=== PATIENT | female | born 1950 | race African-American/Black ===

== ENCOUNTER 2018-02-28 15:00 | Inpatient (IN) | payer MEDICARE ==
[~2018-02-28] VITALS: Ht 157.5 cm; Wt 90.3 kg
[2018-02-28 17:39] VITALS: BP 160/92
[2018-02-28 19:11] LABS: BASOPHILS % (AUTO) 1.2 % (0.0-2.0); EOSINOPHILS % (AUTO) 0.8 % (0.0-3.0); HEMATOCRIT 32.1 % (37.0-47.0); HEMOGLOBIN 10.6 G/DL (12.0-16.0); LYMPHOCYTES % (AUTO) 31.6 % (20.0-45.0); MEAN CORPUSCULAR VOLUME 84 FL (80-99); MONOCYTES % (AUTO) 6.8 % (1.0-10.0); NEUTROPHILS % (AUTO) 59.6 % (45.0-75.0); PLATELET COUNT 139 K/UL (150-450); RED BLOOD COUNT 3.84 M/UL (4.20-5.40); RED CELL DISTRIBUTION WIDTH 11.4 % (11.6-14.8); WHITE BLOOD COUNT 4.3 K/UL (4.8-10.8)
[2018-02-28 19:14] LABS: ALANINE AMINOTRANSFERASE 14 U/L (12-78); ALBUMIN 2.7 G/DL (3.4-5.0); ALBUMIN/GLOBULIN RATIO 0.7 (1.0-2.7); ALKALINE PHOSPHATASE 84 U/L (46-116); ANION GAP 9 mmol/L (5-15); ASPARTATE AMINO TRANSFERASE 20 U/L (15-37); BILIRUBIN,TOTAL 0.9 MG/DL (0.2-1.0); BLOOD UREA NITROGEN 21 mg/dL (7-18); CALCIUM 8.6 MG/DL (8.5-10.1); CARBON DIOXIDE 26 MMOL/L (21-32); CHLORIDE 103 MMOL/L (98-107); CREATININE 1.4 MG/DL (0.55-1.30); POTASSIUM 3.9 MMOL/L (3.5-5.1); SODIUM 138 MMOL/L (136-145)
[2018-02-28] MEDS ORDERED: METFORMIN HCL500 M1 ORAL (19:47)
[2018-02-28] MEDS ORDERED: ASPIRIN325 MG ORAL (19:47)
[2018-02-28] MEDS ORDERED: HUMALOG100 UNIT/4 SUBQ (19:47)
[2018-02-28 20:00] VITALS: BP 145/64
[2018-02-28] MEDS: Carvedilol 6.25mg Tab ORAL SCH (21:17)
[2018-02-28] MEDS: Insulin NovoLOG Flexpen S/S (Mod) SUBQ SCH (21:27)
[2018-02-28] MEDS: Heparin 5000 units/ml inj SUBQ SCH (21:33)
[2018-03-01] VITALS: BP 145/81
[2018-03-01 04:00] VITALS: BP 145/73
[2018-03-01] MEDS: Heparin 5000 units/ml inj SUBQ SCH ×3 (05:46→22:00)
[2018-03-01] MEDS: Insulin NovoLOG Flexpen S/S (Mod) SUBQ SCH ×2 (06:04→12:38)
[2018-03-01 06:47] LABS: APPEARANCE,URINE TURBID; BILIRUBIN, URINE NEGATIVE (NEGATIVE); COLOR,URINE PALE YELLOW; GLUCOSE, URINE (UA) 1+ (NEGATIVE); KETONES,URINE NEGATIVE (NEGATIVE); LEUKOCYTE ESTERASE ,URINE 3+ (NEGATIVE); NITRITE,URINE NEGATIVE (NEGATIVE); PH,URINE 5 (4.5-8.0); PROTEIN,URINE 4+ (NEGATIVE); UROBILINOGEN,URINE NORMAL MG/DL (0.0-1.0)
[2018-03-01 08:00] VITALS: BP 117/68
[2018-03-01 08:41] LABS: CHOLESTEROL 158 MG/DL (< 200); HDL CHOLESTEROL 77 MG/DL (40-60); PHOSPHORUS 4.6 MG/DL (2.5-4.9); TRIGLYCERIDES 73 MG/DL (30-150)
[2018-03-01] MEDS ORDERED: Losartan 50mg tab ORAL SCH (09:00)
[2018-03-01] MEDS ORDERED: Aspirin Baby 81mg ORAL SCH (09:00)
[2018-03-01] MEDS: Carvedilol 6.25mg Tab ORAL SCH ×2 (09:07→21:37)
--- NOTE | 2018-03-01 11:23 | History & Physical ---
History and Physical History & Physicial Dictated for Int Med-Dr Bob no. [id number]. Randy Ash MD Mar 01, 2018 11:23
--- NOTE | 2018-03-01 11:41 | Consultation ---
History of Present Illness General Date patient seen: Mar 01, 2018 Reason for Consultation: inpatient management Present Illness HPI 67 year old female with hx of CVA, HTN, DM, was taken to [facility] with CC of ALOC and hyperglycemia. After initial work up, she was transferred to [facility] [place] further treatment. Pt is asymptomatic now. stating that she walks with a walker usually because of her previous CVA. Allergies: Coded Allergies: PENICILLINS (Verified Allergy, Unknown, 02/28/18) Medication History Scheduled Aspirin* (Aspirin*), 325 MG ORAL DAILY, (Reported) Metformin Hcl* (Metformin Hcl*), 500 MG ORAL TWICE A DAY, (Reported) Miscellaneous Medications Insulin Lispro (Humalog), 0 SUBQ, (Reported) Patient History Healthcare decision maker N Resuscitation status Full Code Advanced Directive on File Past Medical/Surgical History Past Medical/Surgical History: (1) CVA (cerebral vascular accident) Review of Systems All Other Systems: negative except mentioned in HPI Physical Exam General Appearance: WD/WN, no apparent distress Lines, tubes and drains: peripheral HEENT: normocephalic, atraumatic Neck: non-tender, normal alignment Respiratory/Chest: chest wall non-tender, lungs clear Cardiovascular/Chest: normal peripheral pulses, normal rate Abdomen: normal bowel sounds Genitourinary/Rectal: normal genital exam Last 24 Hour Vital Signs Date Time Temp Pulse Resp B/P (MAP) Pulse Ox O2 Delivery O2 Flow Rate FiO2 03/01/18 09:07 76 160/74 03/01/18 09:06 160/74 03/01/18 04:00 70 03/01/18 04:00 97.5 74 18 145/73 95 Room Air 97.5 03/01/18 00:00 97.9 74 20 145/81 100 Room Air 97.9 03/01/18 00:00 77 02/28/18 21:17 81 145/64 02/28/18 20:00 81 02/28/18 20:00 98.4 81 22 145/64 94 Room Air 98.4 02/28/18 17:39 98.1 85 18 160/92 100 Room Air 98.1 Intake and Output 02/28/18 03/01/18 19:00 07:00 Intake Total 120 ml Balance 120 ml Intake Oral 120 ml # Voids 1 2 Laboratory Tests Test 02/28/18 18:49 7/2/18 06:00 03/01/18 06:25 White Blood Count 4.3 K/UL (4.8-10.8) L Red Blood Count 3.84 M/UL (4.20-5.40) L Hemoglobin 10.6 G/DL (12.0-16.0) L Hematocrit 32.1 % (37.0-47.0) L Mean Corpuscular Volume 84 FL (80-99) Mean Corpuscular Hemoglobin 27.7 PG (27.0-31.0) Mean Corpuscular Hemoglobin Concent 33.1 G/DL (32.0-36.0) Red Cell Distribution Width 11.4 % (11.6-14.8) L Platelet Count 139 K/UL (150-450) L Mean Platelet Volume 9.8 FL (6.5-10.1) Neutrophils (%) (Auto) 59.6 % (45.0-75.0) Lymphocytes (%) (Auto) 31.6 % (20.0-45.0) Monocytes (%) (Auto) 6.8 % (1.0-10.0) Eosinophils (%) (Auto) 0.8 % (0.0-3.0) Basophils (%) (Auto) 1.2 % (0.0-2.0) Sodium Level 138 MMOL/L (136-145) Potassium Level 3.9 MMOL/L (3.5-5.1) Chloride Level 103 MMOL/L (98-107) Carbon Dioxide Level 26 MMOL/L (21-32) Anion Gap 9 mmol/L (5-15) Blood Urea Nitrogen 21 mg/dL (7-18) H Creatinine 1.4 MG/DL (0.55-1.30) H Estimat Glomerular Filtration Rate 45.8 mL/min (>60) Glucose Level 203 MG/DL (74-106) H Calcium Level 8.6 MG/DL (8.5-10.1) Total Bilirubin 0.9 MG/DL (0.2-1.0) Aspartate Amino Transf (AST/SGOT) 20 U/L (15-37) Alanine Aminotransferase (ALT/SGPT) 14 U/L (12-78) Alkaline Phosphatase 84 U/L (46-116) Total Protein 6.8 G/DL (6.4-8.2) Albumin 2.7 G/DL (3.4-5.0) L Globulin 4.1 g/dL Albumin/Globulin Ratio 0.7 (1.0-2.7) L Urine Color Pale yellow Urine Appearance Turbid Urine pH 5 (4.5-8.0) Urine Specific [place] 1.015 (1.005-1.035) Urine Protein 4+ (NEGATIVE) H Urine Glucose (UA) 1+ (NEGATIVE) H Urine Ketones Negative (NEGATIVE) Urine Occult Blood 3+ (NEGATIVE) H Urine Nitrite Negative (NEGATIVE) Urine Bilirubin Negative (NEGATIVE) Urine Urobilinogen Normal MG/DL (0.0-1.0) Urine Leukocyte Esterase 3+ (NEGATIVE) H Urine RBC 5-10 /HPF (0 - 2) H Urine WBC 40-60 /HPF (0 - 2) H Urine Squamous Epithelial Cells Many /LPF (NONE/OCC) H Urine Bacteria Many /HPF (NONE) H Urine Hyaline Casts 0-2 /LPF (NONE) H Phosphorus Level 4.6 MG/DL (2.5-4.9) Magnesium Level 1.5 MG/DL (1.8-2.4) L Triglycerides Level 73 MG/DL (30-150) Cholesterol Level 158 MG/DL (< 200) LDL Cholesterol 77 mg/dL (<100) HDL Cholesterol 77 MG/DL (40-60) H Cholesterol/HDL Ratio 2.1 (3.3-4.4) L Height (Feet): 5 Height (Inches): 2.00 Weight (Pounds): 199 Medications Current Medications Medications (Trade) Dose Ordered Sig/Sonali Route PRN Reason Start Time Stop Time Status Last Admin Dose Admin Acetaminophen (Tylenol) 650 mg Q6H PRN ORAL Mild Pain/Temp > 100.5 02/28/18 18:00 03/30/18 17:59 Aspirin (ASA) 325 mg DAILY ORAL 03/01/18 09:00 03/31/18 08:59 03/01/18 09:01 Carvedilol (Coreg) 6.25 mg EVERY 12 HOURS ORAL 02/28/18 21:00 03/30/18 20:59 03/01/18 09:07 Clonidine HCl (Catapres Tab) 0.1 mg Q4H PRN ORAL SBP >160 02/28/18 18:00 03/30/18 17:59 Dextrose (Dextrose 50%) 25 ml STAT PRN IV Hypoglycemia 02/28/18 18:15 03/30/18 18:14 Dextrose (Dextrose 50%) 50 ml STAT PRN IV Hypoglycemia 02/28/18 18:15 03/30/18 18:14 Heparin Sodium (Porcine) (Heparin 5000 units/ml) 5,000 units EVERY 8 HOURS SUBQ 02/28/18 22:00 03/30/18 21:59 03/01/18 05:46 Insulin Aspart (NovoLOG) BEFORE MEALS AND HS SUBQ 02/28/18 21:00 03/30/18 20:59 03/01/18 06:04 Levofloxacin 100 ml @ 100 mls/hr Q24H IVPB 03/01/18 11:30 03/08/18 11:29 UNV Losartan Potassium (Cozaar) 50 mg DAILY ORAL 03/01/18 09:00 03/31/18 08:59 03/01/18 09:06 Metformin HCl (Glucophage) 500 mg BID ORAL 03/01/18 09:00 03/31/18 08:59 UNV Ondansetron HCl (Zofran) 4 mg Q6H PRN IVP Nausea & Vomiting 02/28/18 18:00 03/30/18 17:59 Assessment/Plan Problem List: (1) Acute encephalopathy ICD Codes: G93.40 - Encephalopathy, unspecified SNOMED: 10105951, 910153103 (2) Hypertension ICD Codes: I10 - Essential (primary) hypertension SNOMED: 51691497 (3) CVA (cerebral vascular accident) ICD Codes: I63.9 - Cerebral infarction, unspecified SNOMED: 597828005 (4) Diabetes mellitus ICD Codes: E11.9 - Type 2 diabetes mellitus without complications SNOMED: 13392043 Assessment/Plan MRI brain neuro evaluation sliding scale diabetic diet dvt prophylaxis pt/pt med/surg Ivone Quan MD Mar 01, 2018 11:41
[2018-03-01 12:00] VITALS: BP 159/76
--- NOTE | 2018-03-01 13:15 | History and Physical Report ---
DATE OF ADMISSION: 02/28/2018 CHIEF COMPLAINT: The patient is a 67-year-old female, presents with a chief complaint of left-sided weakness. HISTORY OF PRESENT ILLNESS: The patient has a history of diabetes and hypertension. The patient had a previous history of left-sided weakness in 2017. The patient states she has been traveling for the last two days. The patient has not gotten much sleep. Upon arrival at home, the patient was having problems with her blood glucose monitor. The patient was also having trouble with her phone. The patient appeared to be altered. EMS was called by the patient's sister. The patient was transferred initially to [facility] emergency room. The patient is transferred to [facility] for insurance purposes. The patient is admitted for left-sided weakness to rule out acute cerebrovascular accident. REVIEW OF SYSTEMS: CONSTITUTIONAL: The patient denies weight loss or weight gain. The patient denies fevers or chills. HEENT: The patient denies ear or throat pain. The patient denies headache. CARDIOVASCULAR: The patient denies palpitations or chest pain. CHEST: The patient denies wheezes or shortness of breath. ABDOMEN: The patient denies nausea, vomiting, diarrhea, or constipation. GENITOURINARY: The patient denies dysuria or increased frequency of urination. NEUROMUSCULAR: The patient complains of left-sided weakness as above. The patient denies seizures or generalized weakness. PAST MEDICAL HISTORY: Significant for: 1. Left-sided weakness in 2017, questionable transient ischemic attack. 2. Diabetes type 2. 3. Hypertension. PAST SURGICAL HISTORY: The patient denies. CURRENT MEDICATIONS: 1. Metformin 500 mg one tablet p.o. twice daily. 2. Aspirin 325 mg one tablet p.o. daily. 3. Lispro sliding scale before every meals. ALLERGIES: Penicillin. SOCIAL HISTORY: The patient is single. The patient lives with her sister. The patient denies tobacco or alcohol use. PHYSICAL EXAMINATION: VITAL SIGNS: Temperature 97.9, respirations 20, pulse 77, and blood pressure 145/81. GENERAL: The patient is a well-developed, well-nourished, female, in no apparent distress. HEENT: Eyes, pupils equal and responsive to light and accommodation. Extraocular movements are intact. NECK: Supple without lymphadenopathy. CHEST: Lungs are clear to auscultation bilaterally without wheezes or rales. CARDIOVASCULAR: Regular rate. S1 and S2 normal without murmurs, rubs, or gallops. ABDOMEN: Soft, nontender, nondistended. Positive bowel sounds. No evidence of hepatosplenomegaly. Currently, no rebound or guarding noted. EXTREMITIES: Negative for clubbing, cyanosis, or edema. RECTAL/GENITAL: Refused. NEUROLOGIC: Cranial nerves II through XII are grossly intact without focal deficits. Motor strength is 5/5 bilaterally. Deep tendon reflexes are 2+ plantar. LABORATORY STUDIES: WBC 3.2, hemoglobin 10.4, hematocrit 31.4, and platelets 128,000. Sodium 137, potassium 3.8, chloride 103, CO2 is 27, BUN 20, creatinine 1.3, glucose 220. Troponin less than 0.02. Urinalysis showed 1+ protein, 1+ glucose, 3+ occult blood, 3+ leukocyte esterase with 40 to 60 wbc's. ASSESSMENT: This is a 67-year-old female: 1. Altered mental status. 2. Left-sided weakness. 3. Urinary tract infection. 4. Diabetes type 2. 5. Hypertension. TREATMENT: 1. Altered mental status/left-sided weakness. An MRI of the brain is pending. An initial CAT scan at [place] revealed no acute disease or masses. A carotid duplex and Dopplers are pending. An echocardiogram is pending. 2. Urinary tract infection. The patient has been started empirically on Levaquin. Urine culture is pending. 3. Diabetes type 2. Continue NovoLog sliding scale. 4. Hypertension. The patient has been placed on lisinopril. Continue Coreg 6.25 mg p.o. twice daily. Randy Ash M.D. DR: PATY JOB#: [id number] CC:
[2018-03-01] MEDS ORDERED: LORazepam Inj 2mg/ml 1ml IVP PRN ×2 (15:15→18:00)
[2018-03-01 16:00] VITALS: BP 148/77
[2018-03-01] MEDS: NovoLOG Insulin Flexpen SUBQ SCH ×2 (17:43→21:00)
[2018-03-01] MEDS: metFORMIN 500mg tab ORAL SCH (17:44)
--- NOTE | 2018-03-01 17:50 | Consultation ---
History of Present Illness General Date patient seen: Mar 01, 2018 Reason for Consultation: inpatient management Present Illness HPI 67 year old female with hx of CVA, HTN, DM, was taken to [facility] with CC of ALOC and hyperglycemia. The pt is memory impairment and the pt is agitated and yelling and the pt irritable and has poor insight. Allergies: Coded Allergies: PENICILLINS (Verified Allergy, Unknown, 02/28/18) Medication History Scheduled Aspirin* (Aspirin*), 325 MG ORAL DAILY, (Reported) Aspirin* (Aspirin*), 325 MG ORAL DAILY Losartan Potassium* (Cozaar*), 50 MG ORAL DAILY Metformin Hcl* (Metformin Hcl*), 500 MG ORAL TWICE A DAY, (Reported) Miscellaneous Medications Insulin Lispro (Humalog), 0 SUBQ, (Reported) Patient History Limited by: medical condition History Provided By: Patient, Medical Record, PMD Healthcare decision maker N Resuscitation status Full Code Advanced Directive on File Past Medical/Surgical History Past Medical/Surgical History: (1) CVA (cerebral vascular accident) (2) Diabetes mellitus (3) Hypertension (4) Acute encephalopathy Review of Systems Psychiatric: Reports: prior hx, anxiety, depressed feelings, emotional problems , hallucinations Physical Exam General Appearance: WD/WN, no apparent distress, alert, confused, agitated Last 24 Hour Vital Signs Date Time Temp Pulse Resp B/P (MAP) Pulse Ox O2 Delivery O2 Flow Rate FiO2 03/01/18 16:00 97.9 74 21 148/77 98 Room Air 97.9 03/01/18 12:00 98.1 77 20 159/76 97 Room Air 98.1 03/01/18 12:00 73 03/01/18 09:07 76 160/74 03/01/18 09:06 160/74 03/01/18 08:00 78 03/01/18 08:00 98.1 83 20 117/68 97 Room Air 98.1 03/01/18 04:00 70 03/01/18 04:00 97.5 74 18 145/73 95 Room Air 97.5 03/01/18 00:00 97.9 74 20 145/81 100 Room Air 97.9 03/01/18 00:00 77 02/28/18 21:17 81 145/64 02/28/18 20:00 81 02/28/18 20:00 98.4 81 22 145/64 94 Room Air 98.4 Intake and Output 02/28/18 03/01/18 19:00 07:00 Intake Total 120 ml Balance 120 ml Intake Oral 120 ml # Voids 1 2 Laboratory Tests Test 02/28/18 18:49 03/01/18 06:00 03/01/18 06:25 White Blood Count 4.3 K/UL (4.8-10.8) L Red Blood Count 3.84 M/UL (4.20-5.40) L Hemoglobin 10.6 G/DL (12.0-16.0) L Hematocrit 32.1 % (37.0-47.0) L Mean Corpuscular Volume 84 FL (80-99) Mean Corpuscular Hemoglobin 27.7 PG (27.0-31.0) Mean Corpuscular Hemoglobin Concent 33.1 G/DL (32.0-36.0) Red Cell Distribution Width 11.4 % (11.6-14.8) L Platelet Count 139 K/UL (150-450) L Mean Platelet Volume 9.8 FL (6.5-10.1) Neutrophils (%) (Auto) 59.6 % (45.0-75.0) Lymphocytes (%) (Auto) 31.6 % (20.0-45.0) Monocytes (%) (Auto) 6.8 % (1.0-10.0) Eosinophils (%) (Auto) 0.8 % (0.0-3.0) Basophils (%) (Auto) 1.2 % (0.0-2.0) Sodium Level 138 MMOL/L (136-145) Potassium Level 3.9 MMOL/L (3.5-5.1) Chloride Level 103 MMOL/L (98-107) Carbon Dioxide Level 26 MMOL/L (21-32) Anion Gap 9 mmol/L (5-15) Blood Urea Nitrogen 21 mg/dL (7-18) H Creatinine 1.4 MG/DL (0.55-1.30) H Estimat Glomerular Filtration Rate 45.8 mL/min (>60) Glucose Level 203 MG/DL (74-106) H Calcium Level 8.6 MG/DL (8.5-10.1) Total Bilirubin 0.9 MG/DL (0.2-1.0) Aspartate Amino Transf (AST/SGOT) 20 U/L (15-37) Alanine Aminotransferase (ALT/SGPT) 14 U/L (12-78) Alkaline Phosphatase 84 U/L (46-116) Total Protein 6.8 G/DL (6.4-8.2) Albumin 2.7 G/DL (3.4-5.0) L Globulin 4.1 g/dL Albumin/Globulin Ratio 0.7 (1.0-2.7) L Urine Color Pale yellow Urine Appearance Turbid Urine pH 5 (4.5-8.0) Urine Specific [place] 1.015 (1.005-1.035) Urine Protein 4+ (NEGATIVE) H Urine Glucose (UA) 1+ (NEGATIVE) H Urine Ketones Negative (NEGATIVE) Urine Occult Blood 3+ (NEGATIVE) H Urine Nitrite Negative (NEGATIVE) Urine Bilirubin Negative (NEGATIVE) Urine Urobilinogen Normal MG/DL (0.0-1.0) Urine Leukocyte Esterase 3+ (NEGATIVE) H Urine RBC 5-10 /HPF (0 - 2) H Urine WBC 40-60 /HPF (0 - 2) H Urine Squamous Epithelial Cells Many /LPF (NONE/OCC) H Urine Bacteria Many /HPF (NONE) H Urine Hyaline Casts 0-2 /LPF (NONE) H Phosphorus Level 4.6 MG/DL (2.5-4.9) Magnesium Level 1.5 MG/DL (1.8-2.4) L Triglycerides Level 73 MG/DL (30-150) Cholesterol Level 158 MG/DL (< 200) LDL Cholesterol 77 mg/dL (<100) HDL Cholesterol 77 MG/DL (40-60) H Cholesterol/HDL Ratio 2.1 (3.3-4.4) L Height (Feet): 5 Height (Inches): 2.00 Weight (Pounds): 199 Medications Current Medications Medications (Trade) Dose Ordered Sig/Sonali Route PRN Reason Start Time Stop Time Status Last Admin Dose Admin Acetaminophen (Tylenol) 650 mg Q6H PRN ORAL Mild Pain/Temp > 100.5 03/01/18 18:00 03/30/18 17:59 Aspirin (ASA) 325 mg DAILY ORAL 03/02/18 09:00 03/31/18 08:59 Carvedilol (Coreg) 6.25 mg EVERY 12 HOURS ORAL 03/01/18 21:00 03/30/18 20:59 Clonidine HCl (Catapres Tab) 0.1 mg Q4H PRN ORAL SBP >160 03/01/18 18:00 03/30/18 17:59 Dextrose (Dextrose 50%) 25 ml STAT PRN IV Hypoglycemia 03/01/18 18:15 03/30/18 18:14 Dextrose (Dextrose 50%) 50 ml STAT PRN IV Hypoglycemia 03/01/18 18:15 03/30/18 18:14 Heparin Sodium (Porcine) (Heparin 5000 units/ml) 5,000 units EVERY 8 HOURS SUBQ 03/01/18 22:00 03/30/18 21:59 Insulin Aspart (NovoLOG) BEFORE MEALS AND HS SUBQ 03/01/18 17:15 03/30/18 17:14 03/01/18 17:43 Levofloxacin 50 ml @ 100 mls/hr Q24HRS IVPB 03/03/18 12:30 03/10/18 12:29 Levofloxacin 100 ml @ 100 mls/hr ONCE IVPB 03/02/18 12:30 03/02/18 13:30 Lorazepam (Ativan 2mg/ml 1ml) 0.5 mg Q6HR PRN IVP For Anxiety 03/01/18 18:00 03/08/18 15:14 Losartan Potassium (Cozaar) 50 mg DAILY ORAL 03/02/18 09:00 03/31/18 08:59 Metformin HCl (Glucophage) 500 mg BID ORAL 03/01/18 18:00 03/31/18 17:59 03/01/18 17:44 Ondansetron HCl (Zofran) 4 mg Q6H PRN IVP Nausea & Vomiting 03/01/18 18:00 03/30/18 17:59 Assessment/Plan Assessment/Plan Dementia psychotic d/o encephalopathy Seroquel prn provided ro/Bruno Becker MD Mar 01, 2018 17:50
[2018-03-01] MEDS ORDERED: metFORMIN 500mg tab ORAL SCH (18:00)
[2018-03-02 04:00] VITALS: BP 144/56
[2018-03-02] MEDS: Heparin 5000 units/ml inj SUBQ SCH ×2 (05:53→14:00)
[2018-03-02] MEDS: NovoLOG Insulin Flexpen SUBQ SCH ×2 (05:56→11:30)
[2018-03-02 06:42] LABS: HEMATOCRIT 30.5 % (37.0-47.0); HEMOGLOBIN 10.3 G/DL (12.0-16.0); MEAN CORPUSCULAR VOLUME 86 FL (80-99); PLATELET COUNT 131 K/UL (150-450); RED BLOOD COUNT 3.55 M/UL (4.20-5.40); RED CELL DISTRIBUTION WIDTH 11.9 % (11.6-14.8); WHITE BLOOD COUNT 3.5 K/UL (4.8-10.8)
[2018-03-02 06:57] LABS: ANION GAP 4 mmol/L (5-15); BLOOD UREA NITROGEN 23 mg/dL (7-18); CALCIUM 8.3 MG/DL (8.5-10.1); CARBON DIOXIDE 27 MMOL/L (21-32); CHLORIDE 107 MMOL/L (98-107); CREATININE 1.6 MG/DL (0.55-1.30); SODIUM 138 MMOL/L (136-145)
[2018-03-02 08:00] VITALS: BP 155/78
[2018-03-02] MEDS ORDERED: Losartan 50mg tab ORAL SCH (09:00)
[2018-03-02] MEDS: metFORMIN 500mg tab ORAL SCH (10:31)
[2018-03-02] MEDS: Carvedilol 6.25mg Tab ORAL SCH (10:33)
--- NOTE | 2018-03-02 10:44 | Diagnostic Imaging Report ---
Indication: Left-sided weakness. History of trauma and concussion Technique: The head was imaged in a 1.5 Raisa magnet. Sequences obtained include sagittal and axial T1 FLAIR, axial T2 fast spin echo with fat saturation, axial T2 FLAIR, diffusion and ADC map. Comparison: None Findings: There is moderate prominence of the sulci, ventricles, and basal cisterns consistent with atrophy. Moderate, nonspecific T2 hyperintensity noted within white matter. This may be due to chronic small vessel disease. There is no restricted diffusion. Loredo-white differentiation is normal. There is no mass effect, midline shift, edema, or hemorrhage. There are no abnormal extra-axial or intra-axial fluid collections. The corpus callosum and sella are unremarkable. The brainstem and cerebellum are unremarkable. Bone marrow signal within the visualized osseous structures appears age appropriate and unremarkable otherwise. Impression: No acute intracranial findings. Moderate atrophy and evidence of chronic small vessel disease involving white matter tracts.
[2018-03-02 12:00] VITALS: BP 148/82
[2018-03-02 12:36] VITALS: BP 165/79
[2018-03-02] MEDS ORDERED: COZAAR50 MG ORAL (13:22)
[2018-03-02] MEDS ORDERED: ASPIRIN325 MG ORAL (13:22)
--- NOTE | 2018-03-02 13:24 | Pulmonology Progress Note ---
Assessment/Plan Problems: (1) Acute encephalopathy (2) Hypertension (3) CVA (cerebral vascular accident) (4) Diabetes mellitus Assessment/Plan improving PT note appreciated BP slightly high, needs further fine tuning sliding scale diabetic diet Subjective ROS Limited/Unobtainable: No Allergies: Coded Allergies: PENICILLINS (Verified Allergy, Unknown, 02/28/18) Objective Last 24 Hour Vital Signs Date Time Temp Pulse Resp B/P (MAP) Pulse Ox O2 Delivery O2 Flow Rate FiO2 03/02/18 12:36 165/79 03/02/18 10:33 80 155/75 03/02/18 10:32 155/75 03/02/18 08:00 98.5 80 21 155/78 99 98.5 03/02/18 04:00 98.4 75 18 144/56 96 Room Air 98.4 03/01/18 21:37 82 139/69 03/01/18 16:00 97.9 74 21 148/77 98 Room Air 97.9 Intake and Output 03/01/18 03/02/18 19:00 07:00 Intake Total 480 ml 240 ml Balance 480 ml 240 ml Intake Oral 480 ml 240 ml # Voids 1 1 General Appearance: WD/WN HEENT: normocephalic, anicteric Respiratory/Chest: chest wall non-tender, lungs clear Breasts: no masses Cardiovascular: normal peripheral pulses Abdomen: normal bowel sounds, soft, non tender Genitourinary: normal external genitalia Extremities: no clubbing Skin: no rash Neurologic/Psychiatric: air grinder II-XII grossly normal Lymphatic: no neck adenopathy Musculoskeletal: normal muscle bulk Microbiology Date/Time Source Procedure Growth Status 03/01/18 06:00 Urine,Clean Catch Urine Culture - Preliminary Resulted Laboratory Tests 03/02/18 06:20: White Blood Count 3.5L, Red Blood Count 3.55L, Hemoglobin 10.3L, Hematocrit 30.5L, Mean Corpuscular Volume 86, Mean Corpuscular Hemoglobin 29.0, Mean Corpuscular Hemoglobin Concent 33.8, Red Cell Distribution Width 11.9, Platelet Count 131L, Mean Platelet Volume 9.6, Neutrophils (%) (Auto) , Lymphocytes (%) ( Auto) , Monocytes (%) (Auto) , Eosinophils (%) (Auto) , Basophils (%) (Auto) , Differential Total Cells Counted 100, Neutrophils % (Manual) 29L, Lymphocytes % (Manual) 62H, Monocytes % (Manual) 6, Eosinophils % (Manual) 2, Basophils % ( Manual) 1, Band Neutrophils 0, Platelet Estimate DecreasedL, Platelet Morphology Normal, Red Blood Cell Morphology Normal, Sodium Level 138, Potassium Level 4.0, Chloride Level 107, Carbon Dioxide Level 27, Anion Gap 4L, Blood Urea Nitrogen 23H, Creatinine 1.6H, Estimat Glomerular Filtration Rate 39.3, Glucose Level 174H, Calcium Level 8.3L Current Medications Medications (Trade) Dose Ordered Sig/Sonali Route PRN Reason Start Time Stop Time Status Last Admin Dose Admin Acetaminophen (Tylenol) 650 mg Q6H PRN ORAL Mild Pain/Temp > 100.5 03/01/18 18:00 03/30/18 17:59 Aspirin (ASA) 325 mg DAILY ORAL 03/02/18 09:00 03/31/18 08:59 03/02/18 10:33 Carvedilol (Coreg) 6.25 mg EVERY 12 HOURS ORAL 03/01/18 21:00 03/30/18 20:59 03/02/18 10:33 Clonidine HCl (Catapres Tab) 0.1 mg Q4H PRN ORAL SBP >160 03/01/18 18:00 03/30/18 17:59 03/02/18 12:36 Dextrose (Dextrose 50%) 25 ml STAT PRN IV Hypoglycemia 03/01/18 18:15 03/30/18 18:14 Dextrose (Dextrose 50%) 50 ml STAT PRN IV Hypoglycemia 03/01/18 18:15 03/30/18 18:14 Heparin Sodium (Porcine) (Heparin 5000 units/ml) 5,000 units EVERY 8 HOURS SUBQ 03/01/18 22:00 03/30/18 21:59 Insulin Aspart (NovoLOG) BEFORE MEALS AND HS SUBQ 03/01/18 17:15 03/30/18 17:14 03/02/18 11:30 Levofloxacin 50 ml @ 100 mls/hr Q24HRS IVPB 03/03/18 12:30 03/10/18 12:29 Levofloxacin 100 ml @ 100 mls/hr ONCE IVPB 03/02/18 12:30 03/02/18 13:30 03/02/18 13:07 Lorazepam (Ativan 2mg/ml 1ml) 0.5 mg Q6HR PRN IVP For Anxiety 03/01/18 18:00 03/08/18 15:14 Losartan Potassium (Cozaar) 50 mg DAILY ORAL 03/02/18 09:00 03/31/18 08:59 03/02/18 10:32 Metformin HCl (Glucophage) 500 mg BID ORAL 03/01/18 18:00 03/31/18 17:59 03/02/18 10:31 Ondansetron HCl (Zofran) 4 mg Q6H PRN IVP Nausea & Vomiting 03/01/18 18:00 03/30/18 17:59 Ivone Quan MD Mar 02, 2018 13:24
--- NOTE | 2018-03-02 14:07 | Diagnostic Imaging Report ---
APPROVED REPORT CPT Code: 78055 Vascular Symptoms Comments: AMS. Doppler Spectral Velocity Analysis RightLeft BIATERAL CAROTID: CCA - Imaging reveals no significant plaque in the common carotid the external carotid arteries. The Doppler signal indicates the degree of stenosis is minimal (5%) in the internal and external carotid arteries. VERTEBRAL - The vertebral arteries are patent, without evidence of stenosis or steal, bilaterally.
--- NOTE | 2018-03-02 15:39 | General Progress Note ---
Assessment/Plan Assessment/Plan Dementia psychotic d/o encephalopathy Seroquel prn provided ro/st Subjective Date patient seen: Mar 02, 2018 Neurologic/Psychiatric: Reports: anxiety, depressed, emotional problems Allergies: Coded Allergies: PENICILLINS (Verified Allergy, Unknown, 02/28/18) Objective Last 24 Hour Vital Signs Date Time Temp Pulse Resp B/P (MAP) Pulse Ox O2 Delivery O2 Flow Rate FiO2 03/02/18 12:36 165/79 03/02/18 12:00 97.1 78 20 148/82 97 Room Air 97.1 03/02/18 10:33 80 155/75 03/02/18 10:32 155/75 03/02/18 08:00 98.5 80 21 155/78 99 98.5 03/02/18 04:00 98.4 75 18 144/56 96 Room Air 98.4 03/01/18 21:37 82 139/69 03/01/18 16:00 97.9 74 21 148/77 98 Room Air 97.9 Intake and Output 03/01/18 03/02/18 19:00 07:00 Intake Total 480 ml 240 ml Balance 480 ml 240 ml Intake Oral 480 ml 240 ml # Voids 1 1 Laboratory Tests 03/02/18 06:20: White Blood Count 3.5L, Red Blood Count 3.55L, Hemoglobin 10.3L, Hematocrit 30.5L, Mean Corpuscular Volume 86, Mean Corpuscular Hemoglobin 29.0, Mean Corpuscular Hemoglobin Concent 33.8, Red Cell Distribution Width 11.9, Platelet Count 131L, Mean Platelet Volume 9.6, Neutrophils (%) (Auto) , Lymphocytes (%) ( Auto) , Monocytes (%) (Auto) , Eosinophils (%) (Auto) , Basophils (%) (Auto) , Differential Total Cells Counted 100, Neutrophils % (Manual) 29L, Lymphocytes % (Manual) 62H, Monocytes % (Manual) 6, Eosinophils % (Manual) 2, Basophils % ( Manual) 1, Band Neutrophils 0, Platelet Estimate DecreasedL, Platelet Morphology Normal, Red Blood Cell Morphology Normal, Sodium Level 138, Potassium Level 4.0, Chloride Level 107, Carbon Dioxide Level 27, Anion Gap 4L, Blood Urea Nitrogen 23H, Creatinine 1.6H, Estimat Glomerular Filtration Rate 39.3, Glucose Level 174H, Calcium Level 8.3L Height (Feet): 5 Height (Inches): 2.00 Weight (Pounds): 199 General Appearance: no apparent distress, alert, confused, agitated Bruno English MD Mar 02, 2018 15:39
--- NOTE | 2018-03-02 17:26 | Internal Med Progress Note ---
Subjective Date of Service: Mar 02, 2018 Physician Name Randy Ash Attending Physician Javy Bob MD Allergies: Coded Allergies: PENICILLINS (Verified Allergy, Unknown, 02/28/18) ROS Limited/Unobtainable: No Constitutional: Reports: no symptoms HEENT: Reports: no symptoms Cardiovascular: Reports: no symptoms Respiratory: Reports: no symptoms Gastrointestinal/Abdominal: Reports: no symptoms Genitourinary: Reports: no symptoms Neurologic/Psychiatric: Reports: no symptoms Subjective 67 YO F admitted with left weakness. Cover for Int Med-Dr Bob Objective Last Vital Signs Date Time Temp Pulse Resp B/P (MAP) Pulse Ox O2 Delivery O2 Flow Rate FiO2 03/02/18 12:36 165/79 03/02/18 12:00 97.1 78 20 97 Room Air 97.1 General Appearance: WD/WN, no apparent distress, alert, obese EENT: PERRL/EOMI, normal ENT inspection Neck: non-tender, normal alignment, supple, normal inspection Cardiovascular: normal peripheral pulses, normal rate, regular rhythm, no gallop/murmur, no JVD Respiratory/Chest: chest wall non-tender, lungs clear, normal breath sounds, no respiratory distress, no accessory muscle use Abdomen: normal bowel sounds, non tender, soft, no organomegaly, no mass Extremities: normal range of motion, non-tender Neurologic: loftsman II-XII grossly normal, no motor/sensory deficits Laboratory Tests Test 03/02/18 06:20 White Blood Count 3.5 K/UL (4.8-10.8) L Red Blood Count 3.55 M/UL (4.20-5.40) L Hemoglobin 10.3 G/DL (12.0-16.0) L Hematocrit 30.5 % (37.0-47.0) L Mean Corpuscular Volume 86 FL (80-99) Mean Corpuscular Hemoglobin 29.0 PG (27.0-31.0) Mean Corpuscular Hemoglobin Concent 33.8 G/DL (32.0-36.0) Red Cell Distribution Width 11.9 % (11.6-14.8) Platelet Count 131 K/UL (150-450) L Mean Platelet Volume 9.6 FL (6.5-10.1) Neutrophils (%) (Auto) % (45.0-75.0) Lymphocytes (%) (Auto) % (20.0-45.0) Monocytes (%) (Auto) % (1.0-10.0) Eosinophils (%) (Auto) % (0.0-3.0) Basophils (%) (Auto) % (0.0-2.0) Differential Total Cells Counted 100 Neutrophils % (Manual) 29 % (45-75) L Lymphocytes % (Manual) 62 % (20-45) H Monocytes % (Manual) 6 % (1-10) Eosinophils % (Manual) 2 % (0-3) Basophils % (Manual) 1 % (0-2) Band Neutrophils 0 % (0-8) Platelet Estimate Decreased L Platelet Morphology Normal Red Blood Cell Morphology Normal Sodium Level 138 MMOL/L (136-145) Potassium Level 4.0 MMOL/L (3.5-5.1) Chloride Level 107 MMOL/L (98-107) Carbon Dioxide Level 27 MMOL/L (21-32) Anion Gap 4 mmol/L (5-15) L Blood Urea Nitrogen 23 mg/dL (7-18) H Creatinine 1.6 MG/DL (0.55-1.30) H Estimat Glomerular Filtration Rate 39.3 mL/min (>60) Glucose Level 174 MG/DL (74-106) H Calcium Level 8.3 MG/DL (8.5-10.1) L Microbiology Date/Time Source Procedure Growth Status 03/01/18 06:00 Urine,Clean Catch Urine Culture - Preliminary Resulted Intake and Output 03/01/18 03/02/18 18:59 06:59 Intake Total 480 ml 240 ml Balance 480 ml 240 ml Intake Oral 480 ml 240 ml # Voids 1 1 Assessment/Plan Problem List: (1) CVA (cerebral vascular accident) (2) Diabetes mellitus Assessment & Plan: continue metformin (3) Hypertension Assessment & Plan: Continue losartaan (4) Acute encephalopathy Assessment/Plan Discharge home today Randy Ash MD Mar 02, 2018 17:26
--- NOTE | 2018-03-03 00:38 | Cardiology Report ---
APPROVED REPORT EKG Measurement Heart [id number] Sinus rhythm with occasional premature ventricular complexes Anterior infarct, age undetermined Abnormal ECG
--- NOTE | 2018-03-04 12:19 | Discharge Summary ---
Discharge Summary Discharge Summary _ DATE OF ADMISSION: 02/28/2018 DATE OF DISCHARGE: 03/02/2018 REASON FOR ADMISSION: 67 years old male with history of diabetes , hypertension, questionable cerebrovascular accident, presented initially to [facility] emergency department with complaint of left-sided weakness. Patient reported having left-sided weakness a year before. CT of the head r, done at the [facility] , revealed no acute intracranial pathology. Urinalysis revealed possible UTI. Patient was transferred to [facility] for insurance purposes with left- sided weakness, rule out acute CVA, possible UTI, altered mental status, hypertension, diabetes. CONSULTANTS: pulmonary Dr. Quan psychiatrist [facility]: Patient admitted. MRI of the brain revealed no acute intracranial findings. Moderate atrophy and evidence of chronic small vessel disease involving white matter tracts was noted. Carotid duplex was unremarkable. ECHO revealed preserved EF 55-60% Lipid panel was stable. Blood pressure was managed with ARB and beta marielle. DVT prophylaxis provided. Blood sugar was managed with metformin and sliding scale of insulin as needed. Patient was evaluated by a physical therapist. Per physical therapy evaluation , patient did not need skilled physical therapy services. No left sided weakness. Patient initially was placed on antibiotic for presumed UTI. Urine culture revealed mixed gram-positive organisms, and antibiotic was discontinued. Renal parameters, electrolytes were closely monitored. Electrolytes were corrected as needed. Nephrotoxins were avoided. Psychiatrist seen and evaluated the patient , and diagnosed patient with encephalopathy , psychotic disorder and dementia. Reality orientation and supportive therapy was provided. Psychiatric medication regimen was optimized by psychiatrist. Patient clinically improved and was stable for discharge FINAL DIAGNOSES: Acute encephalopathy Cerebrovascular disease Hypertension Diabetes mellitus Psychotic disorder Dementia DISCHARGE MEDICATIONS: See Medication Reconciliation list. DISCHARGE INSTRUCTIONS: Patient was discharged home. Follow up with her primary care provider in one week. I have been assigned to dictate discharge summary for this account. I was not involved in the patient's management. Moriah Bryant NP Mar 04, 2018 12:19
== END 2018-03-02 13:20 | disposition home or self-care (01) | DRG 70 ==
LOC: 2E 17:00 → 4W 03-01 16:20
DX: I67.9 Cerebrovascular disease, unspecified (principal); G93.40 Encephalopathy, unspecified; N39.0 Urinary tract infection, site not specified; F23 Brief psychotic disorder; E11.9 Type 2 diabetes mellitus without complications; I10 Essential (primary) hypertension; F03.90 Unspecified dementia, unspecified severity, without behavioral disturbance, psychotic disturbance, mood disturbance, and anxiety; Z88.0 Allergy status to penicillin; Z79.82 Long term (current) use of aspirin; Z79.84 Long term (current) use of oral hypoglycemic drugs
CPT/HCPCS: 36415; 70551; 80048; 80053; 80061; 81001; 82962; 83735; 84100; 85007; 85025; 87086; 93005; 93306; 93880; J1815